=== PATIENT | male | born 1950 | race American Indian/Alaskan Native ===

== ENCOUNTER 2017-08-04 05:47 | Day surgery (SDC) | payer OTHER ==
[2017-08-04] MEDS ORDERED: fentaNYL 100 MCG/2 ML SDV IV ONE ×3 (05:48→07:00)
[2017-08-04] MEDS ORDERED: Midazolam 1 MG/ML 2 ML SDV IV ONE ×3 (05:48→07:02)
[2017-08-04] MEDS ORDERED: Sodium Chloride 0.9% 10 ML Syringe FLUSH PRN (06:00)
[2017-08-04] MEDS ORDERED: Dextrose 5%-0.45% NaCl 1,000 ML IV SCH (06:00)
[2017-08-04] MEDS ORDERED: Midazolam 1 MG/ML 2 ML SDV ONE (06:17)
[2017-08-04] MEDS ORDERED: fentaNYL 100 MCG/2 ML SDV ONE (06:17)
--- NOTE | 2017-08-04 09:41 | OR ---
DATE: 08/04/2017 PROCEDURES: Esophagogastroduodenoscopy and multiple pinch biopsies. INSTRUMENT USED: GIF-Q180 Olympus video panendoscope. PREMEDICATIONS: No oral topical anesthesia used. Fentanyl 100 mcg intravenous, Versed 2 mg intravenous. Nasal O2 cannula. The procedure was done under pulse oximetry, BP recording, and campus monitor. INDICATION: The patient with known Mares esophagus. Surveillance esophagogastroduodenoscopy is performed for detection of any malignant lesions, dysplasia, and/or malignancy under consideration, endoscopic hemostasis therapy if needed. DESCRIPTION OF PROCEDURE: The scope was passed with ease. Adequate visualization of the esophagus was made from proximal to distal areas. No upper esophageal lesions identified. No distal esophageal stricture. No uphill or downhill esophageal varices. No Nanette-Worley tear. No evidence of erosive esophagitis by Hilliard criteria. No esophageal polyp or tumor mass identified. Proximally, encroaching pink columnar epithelium was noted at around 34 cm distal to the oral verge, consistent with Mares esophagus. No esophageal polyp or tumor mass identified. Four-quadrant biopsies were taken at 2 cm distance apart from the pink columnar epithelium at 34, 36, 38, and 40 cm distal to the oral verge and sent for any evidence of dysplasia. No proximal gastric varices noted. Gastric fundus examination by retroflexion showed no polypoid lesions. No gastric ulcer, malignant mass, or vascular ectasia identified. Duodenal bulb showed no ulcer. Visualized second part of the duodenum was unremarkable. No bleeding was noted from any of the visualized areas at the completion of examination. Photographs were taken of the duodenal bulb, gastric antrum, fundus, and distal esophagus. IMPRESSION: Mares esophagus. The patient tolerated the procedure well. [facility] /[id number]
[2017-08-04 10:10] VITALS: BP 156/82
--- NOTE | 2017-08-04 10:53 | LETTER ---
08/04/2017 Sera Fitch NP [facility] [address] [place] [address] RE: JARON LOPEZ : 1950 Dear Ms. Fitch: Mr. Jaron Lopez had esophagogastroduodenoscopy done this morning and he tolerated the procedure well. I herewith send a copy of the endoscopy note and photographs for your review. Thank you. Sincerely, [facility] /[id number]
== END 2017-08-04 09:18 | disposition home or self-care (01) ==
LOC: DL.ENDO 05:47
PROVIDERS: ATTEND Internal Medicine Gastroenterology
DX: K22.70 Barrett's esophagus without dysplasia (principal); K20.9 Esophagitis, unspecified; E66.09 Other obesity due to excess calories; K21.9 Gastro-esophageal reflux disease without esophagitis; E11.22 Type 2 diabetes mellitus with diabetic chronic kidney disease; N18.9 Chronic kidney disease, unspecified; G47.33 Obstructive sleep apnea (adult) (pediatric); F41.1 Generalized anxiety disorder; Z86.19 Personal history of other infectious and parasitic diseases; Z87.440 Personal history of urinary (tract) infections; Z90.49 Acquired absence of other specified parts of digestive tract; Z98.890 Other specified postprocedural states; Z79.899 Other long term (current) drug therapy
CPT/HCPCS: 43239; J2250; J3010; J7042

== ENCOUNTER 2017-08-08 06:24 | Day surgery (SDC) | payer OTHER ==
[~2017-08-08 06:24] MED LIST: Dextrose 5%-0.45% NaCl 1,000 ML IV SCH; Midazolam 1 MG/ML 2 ML SDV ONE; Sodium Chloride 0.9% 10 ML Syringe FLUSH PRN; fentaNYL 100 MCG/2 ML SDV ONE
[2017-08-08] MEDS ORDERED: Midazolam 1 MG/ML 2 ML SDV IV ONE ×6 (06:25→07:36)
[2017-08-08] MEDS ORDERED: fentaNYL 100 MCG/2 ML SDV IV ONE ×3 (06:25→07:30)
[2017-08-08 10:33] VITALS: BP 162/82
--- NOTE | 2017-08-08 13:39 | OR ---
DATE: 08/08/2017 PROCEDURE: Total colonoscopy and multiple pinch biopsies. INSTRUMENT USED: CF-H180AL Olympus video colonoscope. PREMEDICATIONS: Fentanyl 100 mcg intravenous, Versed 3 mg intravenous. Nasal 2 L O2 cannula. The procedure was done under pulse oximetry, BP recording, and cardiac monitor technician. INDICATION: The patient with longstanding ulcerative colitis and rectal bleeding. Colonoscopic examination is done for detection of any polypoid lesions and removal, biopsies to be taken for any evidence of dysplasia, endoscopic hemostasis therapy if needed. DESCRIPTION OF PROCEDURE: Initial rectal exam showed external hemorrhoidal tags. Rigid anoscopy showed small internal hemorrhoids without bleeding from them. The colonoscope was passed with ease. Photographs were taken of the rectosigmoid, descending as well as transverse colon area, showing features consistent with ulcerative colitis. Rectosigmoid area showed contact bleeding as well as friability with superficial ulcers noted. The scope was passed with ease up to the cecal area, photographs were taken. No bleeding was noted from any of the visualized areas at the commencement of the examination. No stricture. No vascular ectasia. No large isolated ulcerations seen. Probing the proximal sides of folds and flexures, using adequate distention and clearing of the stool material, withdrawal of the scope was made. Four-quadrant biopsies were taken at 10 cm distance apart and the tissues obtained were pulled into bags #1 cecum and ascending colon, #2 transverse colon, #3 descending colon and #4 rectosigmoid area. Multiple small pseudopolyps were noted in the sigmoid colon. Photographs were taken, NBI views were obtained, multiple pinch biopsies were obtained and sent for histopathology. No bleeding was noted from any of the visualized areas at the completion of examination. IMPRESSION: Ulcerative colitis. The patient tolerated the procedure well. [facility] /[id number]
--- NOTE | 2017-08-08 14:12 | LETTER ---
08/08/2017 Sera Fitch NP [facility] [address] [place] [address] RE: JARON LOPEZ : 1950 Dear Ms. Fitch: Mr. Jaron Lopez had colonoscopic examination done this morning and he tolerated the procedure well. I herewith send a copy of the endoscopy note and photographs for your review Thank you. Sincerely, [facility] /[id number]
== END 2017-08-08 10:06 | disposition home or self-care (01) ==
LOC: DL.ENDO 06:24
PROVIDERS: ATTEND Internal Medicine Gastroenterology
DX: K52.9 Noninfective gastroenteritis and colitis, unspecified (principal); K64.4 Residual hemorrhoidal skin tags; K64.8 Other hemorrhoids; E66.09 Other obesity due to excess calories; K21.9 Gastro-esophageal reflux disease without esophagitis; K22.70 Barrett's esophagus without dysplasia; E11.22 Type 2 diabetes mellitus with diabetic chronic kidney disease; N18.9 Chronic kidney disease, unspecified; G47.33 Obstructive sleep apnea (adult) (pediatric); F41.1 Generalized anxiety disorder; Z91.19 Patient's noncompliance with other medical treatment and regimen; Z90.49 Acquired absence of other specified parts of digestive tract; Z98.890 Other specified postprocedural states; Z79.899 Other long term (current) drug therapy
CPT/HCPCS: 45380; J7042; J2250; J3010